=== PATIENT | female | born 1995 | race Caucasian/White ===

== ENCOUNTER 2019-02-19 13:06 | Emergency (ER) | payer BC ==
[2019-02-19 13:20] VITALS: BP 117/72
--- NOTE | 2019-02-19 13:54 | UC ---
Head Injury HPI - HPI Summary HPI Summary: PATIENT LEANED OVER AND STRUCK HER RIGHT CONGREGATIONAL ON THE CORNER OF A SHELF JUST OVER A WEEK AGO. NO LOC. NO NAUSEA OR VISUAL DISTURBANCES. 3 DAYS LATER GRAZED THE TOP OF HER HEAD ON THE DOOR FRAME OF HER CAR. AGAIN NO LOC, NAUSEA OR VISUAL DISTURBANCES. SINCE THEN STATES SHE HAS HAD A SENSATION OF A SQUEEZING/PRESSURE IN HER HEAD. NO DIZZINESS BEYOND WHAT SHE STATES IS NORMAL FOR HER. - History Of Current Complaint Chief Complaint: UCHeadInjury Stated Complaint: HEAD INJURY Time Seen by Provider: 02/19/19 13:17 Hx Obtained From: Patient, Family/Game Engineer - DAD Hx Last Menstrual Period: 02/13/19 Onset/Duration: Sudden Onset, Lasting Days, Still Present Severity Currently: Mild Severity Initially: Mild Pain Intensity: 1 Pain Scale Used: 0-10 Numeric Character: Pressure Aggravating Factor(s): Nothing Alleviating Factor(s): Nothing Associated Signs And Symptoms: Negative: LOC (Time In Secs./Mins/Hrs), Confusion , Memory Loss, Seizure, Epistaxis, Neck Pain, Nausea, Vomiting - Allergies/Home Medications Allergies/Adverse Reactions: Allergies Allergy/AdvReac Type Severity Reaction Status Date / Time acetaminophen Allergy rash and Verified 02/19/19 13:21 breathing problem PMH/Surg Hx/FS Hx/Imm Hx Previously Healthy: Yes - Surgical History Surgical History: Yes Surgery Procedure, Year, and Place: wisdom teeth extraction - Family History Known Family History: Positive: Non-Contributory - Social History Alcohol Use: None Substance Use Type: None Smoking Status (MU): Never Smoked Tobacco Review of Systems All Other Systems Reviewed And Are Negative: Yes Constitutional: Positive: Negative Eyes: Positive: Negative ENT: Positive: Negative Respiratory: Positive: Negative Cardiovascular: Positive: Negative Gastrointestinal: Positive: Negative Neurological: Positive: Headache Physical Exam Triage Information Reviewed: Yes Appearance: Well-Appearing, No Pain Distress, Well-Nourished Vital Signs: Initial Vital Signs Temp 97.5 F 02/19/19 13:15 Pulse 71 02/19/19 13:15 Resp 16 02/19/19 13:15 BP 117/72 02/19/19 13:15 Pulse Ox 100 02/19/19 13:15 Vital Signs Reviewed: Yes Eyes: Positive: Conjunctiva Clear, Other: - PERRL, EOMI ENT: Positive: Hearing grossly normal, Pharynx normal, TMs normal Neck: Positive: Supple Respiratory: Positive: No respiratory distress, No accessory muscle use Cardiovascular: Positive: Pulses Normal Abdomen Description: Positive: Soft Musculoskeletal: Positive: No Edema Neurological: Positive: Alert, Other: - CN II-XII GROSSLY INTACT BILATERALLY. RAPID ALTERNATING MOVEMENTS INTACT. NEG PRONATOR DRIFT. NEG ROMBERG. 5/5 STRENGTH. HEEL TO BARTLETT INTACT BILATERALLY. TANDEM GAIT INTACT. FINGER TO NOSE INTACT. Psychological: Positive: Age Appropriate Behavior Skin: Negative: Rashes Diagnostics - Radiology CT HEAD W/OI CONTRAST Radiology Interpretation Completed By: Radiologist Summary of Radiographic Findings: No intracranial mass or hemorrhage is noted. Prominent adenoids are noted. Head Injury Course/Dx - Course Course Of Treatment: PATIENT EXPERIENCED MINOR HEAD TRAUMA. SHE IS COMPLAINING OF SOME PERSISTENT HEAD PRESSURE BUT ALSO ADMITS TO BEING VERY ANXIOUS ABOUT HER CONDITION. IT IS POSSIBLE SHE SUSTAINED A MILD CONCUSSION HOWEVER THIS IS SOMEWHAT CONFOUNDED BY HER LEVEL OF ANXIETY. CT HEAD OBTAINED SHOWED PROMINENT ADENOIDS BUT WAS OTHERWISE UNREMARKABLE. WE DISCUSSED FOLLOW-UP WITH HER PCP TO DISCUSS TREATMENT OPTIONS FOR ANXIETY. I ALSO RECOMMENDED SHE FOLLOW UP WITH ENT TO DISCUSS HER ENLARGED TONSILS AND ADENOIDS THIS MAY IMPROVE HER SENSATION OF NASAL CONGESTION. FAR HER HEAD PRESSURE IS CONCERNED I ENCOURAGED HER TO LIMIT HER SCREEN TIME, TAKE OTC MEDICATION NEEDED FOR DISCOMFORT AND FOLLOW- UP WITH NEUROLOGY OR THE CONCUSSION CLINIC IF HER SYMPTOMS ARE PERSISTENT. TO THE ER WITHOUT FAIL IF SYMPTOMS WORSEN. - Differential Dx/Diagnosis Provider Diagnosis: Head injury, Anxiety Discharge ED - Sign-Out/Discharge Documenting (check all that apply): Patient Departure All imaging exams completed and their final reports reviewed: Yes - Discharge Plan Condition: Stable Disposition: HOME Prescriptions: Ondansetron ODT TAB* [Zofran Odt TAB*] 4 mg PO Q6H PRN #20 tab.odt PRN Reason: Nausea/Vomiting Patient Education Materials: Concussion (ED), Anxiety (ED) Referrals: Hailey Alexander MD [Primary Care Provider] - 1 Week Esvin Mitchell MD [Medical Doctor] - 2 Weeks Additional Instructions: HEAD CT TODAY SHOWS PROMINENT ADENOIDS BUT IS OTHERWISE UNREMARKABLE. YOU MAY HAVE A MILD CONCUSSION. LIMIT SCREEN TIME AND AVOID ACTIVITIES THAT COULD RESULT IN ADDITIONAL HEAD INJURY. YOU NEED BOTH PHYSICAL AND COGNITIVE REST TO EXPEDITE RECOVERY. NO SPORTS FOR AT LEAST A WEEK. FOLLOW-UP WITH PCP IF SYMPTOMS ARE PERSISTENT AFTER 1 WEEK. CONSIDER NEUROLOGY EVAL OR EVAL AT THE CONCUSSION CLINIC AT [facility]. GO TO THE ED WITHOUT FAIL IF YOU DEVELOP UNEQUAL PUPILS, VISUAL DISTURBANCE, GAIT INSTABILITY, SPEECH DIFFICULTY, NAUSEA/VOMITING, WORSENING HEADACHE, DIZZINESS, CONFUSION, WEAKNESS OR ANY OTHER CONCERNING SYMPTOMS. [facility] [phone] (M-F 8AM-4PM) [email or web address] (FOR HELP, INFO OR TO CONNECT WITH A SUPPORT GROUP) YOU MAY BE EXPERIENCING A LEVEL OF ANXIETY THAT WOULD BENEFIT FROM TREATMENT. MAKE AN APPOINTMENT WITH YOUR PCP TO FURTHER DISCUSS MEDICATIONS AND/OR COUNSELING. [facility] Address: [address] [place] [address] 8:30AM-4:30PM CONSIDER ENT EVAL FOR YOUR CHRONICALLY ENLARGED TONSILS AND ADENOIDS. [facility] [place] [address]IA BARAJAS AND [address] [phone] - Billing Disposition and Condition Condition: STABLE Disposition: Home
== END 2019-02-19 14:50 | disposition home or self-care (01) ==
LOC: UCEAST 13:06
DX: S09.90XA Unspecified injury of head, initial encounter (principal); W22.8XXA Striking against or struck by other objects, initial encounter; Y92.9 Unspecified place or not applicable; F41.9 Anxiety disorder, unspecified
CPT/HCPCS: 70450; 99212; G0463